=== PATIENT | female | born 1980 | race Caucasian/White ===

== ENCOUNTER 2017-06-17 17:39 | Emergency (ER) | payer BC ==
[~2017-06-17] VITALS: Ht 162.6 cm; Wt 78.0 kg
[2017-06-17 17:40] VITALS: BP 138/86; PULSE 83; RESP 15; TEMP 98; O2SAT 98
--- NOTE | 2017-06-17 17:51 | PD ---
Physical Exam Time Seen by Provider: 17:49 Narrative 37yo F c/o R groin, RLQ abd pain x 2 weeks. +diarrhea. Juan N, V, fever. LMP 2 weeks ago. Patient seen in triage. VS reviewed. Awaiting bed placement. Data Data Last Documented VS Vital Signs Date Time Temp Pulse Resp B/P (MAP) Pulse Ox O2 Delivery O2 Flow Rate FiO2 06/17/17 17:40 98.0 83 15 138/86 (103) 98 MDM Supervised Visit with ALYNE: Kaley Marrero Jun 17, 2017 17:51
[2017-06-17] MEDS ORDERED: SODIUM CHLORIDE 0.9% FLUSH 10 ML FLUSH IV FLUSH PRN (19:00)
--- NOTE | 2017-06-17 19:12 | PD ---
HPI Chief Complaint: Abdominal Pain Time Seen by Provider: 18:56 Travel History International Travel<30 days: No Contact w/Intl Traveler<30days: No Traveled to known affect area: No History of Present Illness HPI patient has had a mild rt (points adnexal) pain for about a week, no vag bleeding or dc, states that she is NOT lmp 2 weeks ago...however over today, 06/03, intermittent, no hematuria PFSH Past Medical History ?: Not LMP: 05/2017 Social History Tobacco Use: No Allergies-Medications (Allergen,Severity, Reaction): Coded Allergies: No Known Allergies (Unverified , 06/17/17) Reported Meds & Prescriptions Reported Meds & Active Scripts Active Zofran Odt (Ondansetron Odt) 4 Mg Tab 4 Mg SL Q6HR PRN Ultram (Tramadol HCl) 50 Mg Tab 50 Mg PO Q4H PRN Review of Systems Except as stated in HPI: all other systems reviewed are Neg Gastrointestinal: Positive: Abdominal Pain Genitourinary: Positive: Flank Pain Physical Exam Narrative GENERAL: SKIN: Warm and dry. HEAD: Atraumatic. Normocephalic. EYES: Pupils equal and round. No scleral icterus. No injection or drainage. ENT: No nasal bleeding or discharge. Mucous membranes pink and moist. NECK: Trachea midline. No JVD. CARDIOVASCULAR: Regular rate and rhythm. RESPIRATORY: No accessory muscle use. Clear to auscultation. Breath sounds equal bilaterally. GASTROINTESTINAL: Abdomen soft, non-tender, nondistended. however mild rt adnexal ttp without rebound/guarding/rigidity MUSCULOSKELETAL: Extremities without clubbing, cyanosis, or edema. No obvious deformities. NEUROLOGICAL: Awake and alert. No obvious cranial nerve deficits. Motor grossly within normal limits. Five out of 5 muscle strength in the arms and legs. Normal speech. PSYCHIATRIC: Appropriate mood and affect; insight and judgment normal. Data Data Last Documented VS Vital Signs Date Time Temp Pulse Resp B/P (MAP) Pulse Ox O2 Delivery O2 Flow Rate FiO2 06/17/17 22:45 06/17/17 17:40 98.0 83 15 98 Orders Orders Complete Blood Count With Diff (06/17/17 18:47) Comprehensive Metabolic Panel (06/17/17 18:47) Lipase (06/17/17 18:47) Urinalysis - C+S If Indicated (06/17/17 18:47) Ct Abd/Pel W/O Iv Contrast (06/17/17 18:47) Iv Access Insert/Monitor (06/17/17 18:47) Ecg Monitoring (06/17/17 18:47) Oximetry (06/17/17 18:47) NPO (06/17/17 18:47) Sodium Chloride 0.9% Flush (Ns Flush) (06/17/17 19:00) Ed Urine Pregnancytest Poc (06/17/17 18:47) Us Pelvis Comp W Doppler (06/17/17 21:08) Labs Laboratory Tests Test 06/17/17 19:29 06/17/17 20:38 White Blood Count 10.5 TH/MM3 Red Blood Count 4.53 MIL/MM3 Hemoglobin 13.5 GM/DL Hematocrit 40.4 % Mean Corpuscular Volume 89.2 FL Mean Corpuscular Hemoglobin 29.9 PG Mean Corpuscular Hemoglobin Concent 33.5 % Red Cell Distribution Width 12.6 % Platelet Count 242 TH/MM3 Mean Platelet Volume 8.0 FL Neutrophils (%) (Auto) 60.0 % Lymphocytes (%) (Auto) 31.8 % Monocytes (%) (Auto) 6.7 % Eosinophils (%) (Auto) 0.8 % Basophils (%) (Auto) 0.7 % Neutrophils # (Auto) 6.3 TH/MM3 Lymphocytes # (Auto) 3.3 TH/MM3 Monocytes # (Auto) 0.7 TH/MM3 Eosinophils # (Auto) 0.1 TH/MM3 Basophils # (Auto) 0.1 TH/MM3 CBC Comment DIFF FINAL Differential Comment Blood Urea Nitrogen 10 MG/DL Creatinine 0.96 MG/DL Random Glucose 84 MG/DL Total Protein 7.5 GM/DL Albumin 3.8 GM/DL Calcium Level 8.5 MG/DL Alkaline Phosphatase 51 U/L Aspartate Amino Transf (AST/SGOT) 19 U/L Alanine Aminotransferase (ALT/SGPT) 17 U/L Total Bilirubin 0.4 MG/DL Sodium Level 139 MEQ/L Potassium Level 3.6 MEQ/L Chloride Level 105 MEQ/L Carbon Dioxide Level 27.9 MEQ/L Anion Gap 6 MEQ/L Estimat Glomerular Filtration Rate 66 ML/MIN Lipase 389 U/L Urine Color LIGHT-YELLOW Urine Turbidity CLEAR Urine pH 6.5 Urine Specific Delta 1.007 Urine Protein NEG mg/dL Urine Glucose (UA) NEG mg/dL Urine Ketones NEG mg/dL Urine Occult Blood TRACE Urine Nitrite NEG Urine Bilirubin NEG Urine Urobilinogen LESS THAN 2.0 MG/DL Urine Leukocyte Esterase NEG Urine RBC 1 /hpf Urine WBC 1 /hpf Urine Squamous Epithelial Cells 3 /hpf Urine Bacteria OCC /hpf Urine Mucus FEW /lpf Microscopic Urinalysis Comment CULT NOT INDICATED MDM Medical Decision Making Medical Screen Exam Complete: Yes Emergency Medical Condition: Yes Medical Record Reviewed: Yes Differential Diagnosis kidney stones v ovarian torsion v divertic Narrative Course PATIENT'S NEG PREG, CT NEG FOR APPY, KIDNEY STONES OR DIVERTIC DZ...PELVIC ULTRASOUND NEG FOR TORSION....SUSPECT RIGHT INGUINAL HERNIA WITHOUT INCARCERATION/. Diagnosis Primary Impression: SUSPECT RIGHT INGUINAL HERNIA Patient Instructions: General Instructions, Inguinal Hernia (ED) Scripts Ondansetron Odt (Zofran Odt) 4 Mg Tab 4 MG SL Q6HR Y for Nausea/Vomiting, #12 TAB 0 Refills Prov: Hermelindo Cardoso MD 06/17/17 Tramadol (Ultram) 50 Mg Tab 50 MG PO Q4H Y for PAIN, #28 TAB 0 Refills Prov: Hermelindo Cardoso MD 06/17/17 Disposition: 01 DISCHARGE HOME Condition: Stable Hermelindo Cardoso MD Jun 17, 2017 19:12
--- NOTE | 2017-06-17 20:17 | RADRPT ---
EXAM DATE/TIME: 06/17/2017 19:52 [facility] COMPARISON: No previous studies available for comparison. INDICATIONS : Right lower quadrant pain and diarrhea. ORAL CONTRAST: No oral contrast ingested. RADIATION DOSE: 7.45 CTDIvol (mGy) MEDICAL HISTORY : Renal calculi. SURGICAL HISTORY : None. ENCOUNTER: Initial ACUITY: 2 weeks PAIN SCALE: 5/10 LOCATION: Right lower quadrant abdomen TECHNIQUE: Volumetric scanning of the abdomen and pelvis was performed. Using automated exposure control and ad justment of the mA and/or kV according to patient size, radiation dose was kept as low as reasonably achievable to obtain optimal diagnostic quality images. DICOM format image data is available electro nically for review and comparison. FINDINGS: LOWER LUNGS: The visualized lower lungs are clear. LIVER: Homogeneous density without lesion. There is no dilation of the biliary tree. No calcified gallston es. SPLEEN: Normal size without lesion. PANCREAS: Within normal limits. KIDNEYS: Normal in size and shape. There is no mass, stone, or hydronephrosis. ADRENAL GLANDS: Within normal limits. VASCULAR: There is no aortic aneurysm. BOWEL/MESENTERY: The stomach, small bowel, and colon demonstrate no acute abnormality. There is no free intraperitone al air or fluid. Appendix and terminal ileum are normal. ABDOMINAL WALL: Within normal limits. RETROPERITONEUM: There is no lymphadenopathy. BLADDER: No wall thickening or mass. REPRODUCTIVE: Within normal limits. INGUINAL: There is no lymphadenopathy or hernia. MUSCULOSKELETAL: No acute abnormality. CONCLUSION: No acute abnormality is identified within the abdomen or pelvis to explain the clinical symptoms. No renal stones are present. Appendix is normal. Hari Luna MD on June 17, 2017 at 20:12 Board Certified Radiologist. This report was verified electronically.
[2017-06-17 20:24] LABS: AUTOMATED NEUTROPHIL # 6.3 TH/MM3 (1.8-7.7); BASOPHIL # 0.1 TH/MM3 (0-0.2); BASOPHIL % 0.7 % (0.0-2.0); EOSINOPHIL # 0.1 TH/MM3 (0-0.4); EOSINOPHIL % 0.8 % (0.0-4.0); HEMATOCRIT 40.4 % (35.0-46.0); HEMO FLAGS DIFF FINAL; LYMPH % 31.8 % (9.0-44.0); LYMPHOCYTE # 3.3 TH/MM3 (1.0-4.8); MEAN CELL VOLUME 89.2 FL (80.0-100.0); MEAN CORPUSCULAR HEMOGLOBIN 29.9 PG (27.0-34.0); MEAN CORPUSCULAR HGB CONC 33.5 % (32.0-36.0); MONO % 6.7 % (0.0-8.0); PLATELET COUNT 242 TH/MM3 (150-450); RED BLOOD COUNT 4.53 MIL/MM3 (4.00-5.30); RED CELL DISTRIBUTION WIDTH 12.6 % (11.6-17.2); WHITE BLOOD COUNT 10.5 TH/MM3 (4.0-11.0)
[2017-06-17 20:34] LABS: ALT (GPT) 17 U/L (10-53); ANION GAP 6 MEQ/L (5-15); AST (GOT) 19 U/L (15-37); BICARBONATE 27.9 MEQ/L (21.0-32.0); BLOOD UREA NITROGEN 10 MG/DL (7-18); CHLORIDE 105 MEQ/L (98-107); GLOMERULAR FILTRATION RATE 66 ML/MIN (>89); POTASSIUM 3.6 MEQ/L (3.5-5.1); SODIUM (NA) 139 MEQ/L (136-145)
[2017-06-17 20:37] LABS: ALKALINE PHOSPHATASE 51 U/L (45-117); TOTAL BILIRUBIN ADULT 0.4 MG/DL (0.2-1.0)
[2017-06-17 21:53] LABS: BACTERIA, URINE OCC /hpf; BLOOD, URINE TRACE (NEG); COMMENT (UR) CULT NOT INDICATED; CULTURE IF INDICATED CULT NOT INDICATED; GLUCOSE,URINE NEG (NEG); KETONE, URINE NEG (NEG); MUCUS URINE FEW /lpf (OCC); NITRITE,URINE NEG (NEG); PH, URINE 6.5 (5.0-8.5); SQUAMOUS EPITHELIAL CELL URINE 3 /hpf (0-5); URINE COLOR LIGHT-YELLOW (YELLW/STRAW)
[2017-06-17] MEDS ORDERED: ZOFR4TAB3 SL (22:08)
[2017-06-17] MEDS ORDERED: ULTR50TA5 PO (22:08)
--- NOTE | 2017-06-17 22:25 | RADRPT ---
EXAM DATE/TIME: 06/17/2017 21:34 [facility] COMPARISON: CT ABDOMEN & PELVIS W/O CONTRAST, June 17, 2017, 19:52. INDICATIONS : Pelvic pain. MEDICAL HISTORY : None. SURGICAL HISTORY : None. ENCOUNTER: Initial ACUITY: 1 day PAIN SCORE: 2/10 LOCATION: Bilateral pelvis MEASUREMENTS: UTERUS: 7.5 x 4.6 x 3.9 cm ENDOMETRIAL STRIPE: 7 mm RIGHT OVARY: 3.5 x 2.7 x 2.0 cm LEFT OVARY: 3.6 x 2.6 x 2.0 cm FINDINGS: UTERUS: The myometrium has homogeneous echotexture without mass. RIGHT OVARY: Ovary contains no mass or significant cystic lesion. LEFT OVARY: Ovary contains no mass or significant cystic lesion. MISCELLANEOUS: No free fluid. CONCLUSION: Normal transabdominal pelvis ultrasound. Hari Luna MD on June 17, 2017 at 22:22 Board Certified Radiologist. This report was verified electronically.
== END 2017-06-17 22:46 | disposition home or self-care (01) ==
LOC: NEPD 17:39
DX: R10.31 Right lower quadrant pain (principal); R19.7 Diarrhea, unspecified
CPT/HCPCS: 74176; 76856; 80053; 81001; 83690; 84703; 85025; 93975; 99285